=== PATIENT | male | born 1975 | race Caucasian/White ===

== ENCOUNTER 2018-04-30 13:02 | Observation (INO) | payer OTHER ==
[~2018-04-30] VITALS: Ht 185.4 cm; Wt 82.0 kg
[2018-04-30] MEDS ORDERED: NITROGLYCERIN SINGLE TAB 0.4 MG SL ONE (13:22)
[2018-04-30] MEDS ORDERED: ASPIRIN 81 MG TABLET CHEW ONE (13:22)
[2018-04-30] MEDS: NITROGLYCERIN SINGLE TAB 0.4 MG SL PRN ×3 (13:23→13:38)
[2018-04-30] MEDS ORDERED: ASPIRIN 81 MG TABLET CHEW PO ONE (13:30)
[2018-04-30] MEDS ORDERED: SODIUM CHLORIDE FLUSH 10ML SYR IVF ONE (13:30)
[2018-04-30 13:32] LABS: BASOPHILS # (AUTO) 0.04 x10^3/uL (0-0.1); BASOPHILS % (AUTO) 0 % (0-1); EOSINOPHILS # (AUTO) 0.33 x10^3/uL (0-0.4); EOSINOPHILS % (AUTO) 4 % (1-7); LYMPHOCYTES # (AUTO) 2.22 x10^3/uL (1-3.4); LYMPHOCYTES % (AUTO) 25 % (22-44); MD NO; MEAN CORPUSCULAR HEMOGLOBIN 30.6 pg (27.5-34.5); MEAN CORPUSCULAR HGB CONC 34.2 g/dL (33.2-36.2); MEAN CORPUSCULAR VOLUME 89.4 fL (81-97); MEAN PLATELET VOLUME 7.6 fL (7.4-10.4); MONOCYTES # (AUTO) 0.86 x10^3/uL (0.2-0.8); MONOCYTES % (AUTO) 10 % (2-9); NEUTROPHILS # (AUTO) 5.62 x10^3/uL (1.8-6.8); NEUTROPHILS % (AUTO) 62 % (42-75); PLATELET COUNT 279 x10^3/uL (130-400); RED BLOOD COUNT 5.46 x10^6/uL (4.38-5.82); RED CELL DISTRIBUTION WIDTH 12.5 % (9.4-14.8)
[2018-04-30 13:42] LABS: ALANINE AMINOTRANSFERASE 34 U/L (12-78); ALBUMIN 4.1 g/dL (3.4-5.0); ANION GAP 9 mmol/L (5-15); CALCIUM 9.3 mg/dL (8.5-10.1); CHLORIDE 106 mmol/L (98-107); CREATININE 1.07 mg/dL (0.7-1.3)
[2018-04-30] MEDS ORDERED: ONDANSETRON 2MG/ML, 2ML ONE (13:45)
[2018-04-30 13:46] LABS: ALKALINE PHOSPHATASE 67 U/L (45-117); BILIRUBIN,TOTAL 0.5 mg/dL (0.2-1.0); PARTIAL THROMBOPLASTIN TIME 31 Seconds (25-31); PROTHROMBIN TIME 11.3 Seconds (9.6-11.5); TOTAL PROTEIN 7.8 g/dL (6.4-8.2); TROPONIN I < 0.015 ng/mL (0.000-0.045)
[2018-04-30 13:47] LABS: D-DIMER < 0.19 ug/mlFEU (0.00-0.52)
[2018-04-30] MEDS ORDERED: ONDANSETRON 2MG/ML, 2ML IVPush ONE (14:00)
[2018-04-30] MEDS ORDERED: SODIUM CHLORIDE FLUSH 10ML SYR IVF PRN (15:00)
[2018-04-30] MEDS ORDERED: TEST100V2 IM (15:01)
[2018-04-30] MEDS ORDERED: DOCUSATE 100 MG CAPSULE PO PRN (16:30)
[2018-04-30] MEDS ORDERED: IBUPROFEN 600 MG TABLET PO PRN (16:30)
[2018-04-30] MEDS ORDERED: ONDANSETRON 2MG/ML, 2ML IVPush PRN (16:30)
[2018-04-30] MEDS ORDERED: morphine SULFATE 10 MG/ML, 1ML IVPush PRN (16:30)
[2018-04-30 16:43] VITALS: BP 107/70
[2018-04-30] MEDS: KETOROLAC 30 MG/1 ML IV PRN ×2 (17:04→23:36)
[2018-04-30 19:18] VITALS: BP 107/72
[2018-04-30] MEDS: SODIUM CHLORIDE FLUSH 10ML SYR IVF SCH (19:22)
[2018-04-30 23:36] LABS: TROPONIN I < 0.015 ng/mL (0.000-0.045)
[2018-05-01 01:39] VITALS: BP 101/61
[2018-05-01 05:33] LABS: CHOL/HDL RATIO 5.9; CHOLESTEROL, TOTAL 208 mg/dL (140-239); HDL CHOL % 17 % (26-37); HDL CHOLESTEROL (DIRECT) 35 mg/dL (40-60); LDL CHOLESTEROL,CALCULATED 146 mg/dL (54-169); LDL/HDL RATIO 4.2 (0.5-3.0); TRIGLYCERIDES 135 mg/dL (50-200); TROPONIN I < 0.015 ng/mL (0.000-0.045); VLDL CHOLESTEROL 27 mg/dL (0-25)
[2018-05-01 08:00] VITALS: BP 121/72
[2018-05-01] MEDS: SODIUM CHLORIDE FLUSH 10ML SYR IVF SCH (08:54)
[2018-05-01] MEDS ORDERED: ASPIRIN 81 MG TABLET CHEW PO SCH (09:00)
[2018-05-01] MEDS: KETOROLAC 30 MG/1 ML IV PRN (10:28)
[2018-05-01] MEDS ORDERED: ASPI-515 PO ×2 (13:44→14:35)
== END 2018-05-01 15:37 | disposition home or self-care (01) ==
LOC: ED 15:21 → EDIP 15:47 → INTOOBSV 15:47 → 5SO 16:39
PROVIDERS: ADMIT Family Medicine; ATTEND Family Medicine
DX: R07.89 Other chest pain (principal); F41.9 Anxiety disorder, unspecified; E29.1 Testicular hypofunction; F10.21 Alcohol dependence, in remission; M54.2 Cervicalgia; R68.84 Jaw pain; F41.1 Generalized anxiety disorder; I25.119 Atherosclerotic heart disease of native coronary artery with unspecified angina pectoris; Z72.0 Tobacco use; Z79.82 Long term (current) use of aspirin; Z80.8 Family history of malignant neoplasm of other organs or systems; Z82.49 Family history of ischemic heart disease and other diseases of the circulatory system
CPT/HCPCS: 36415; 71045; 80053; 80061; 83880; 84484; 85025; 85379; 85610; 85730; 93005; 93017; 96374; 96375; 96376; 99285; G0378; J1885; J2405